=== PATIENT | female | born 1980 | race Caucasian/White ===

== ENCOUNTER 2022-01-22 11:18 | Outpatient (CLI) | payer OTHER, SELFPAY ==
--- NOTE | ~2022-01-22 | XR_ITS ---
EXAMINATION: XR abdomen/kub 1V INDICATION: Bilateral kidney stones TECHNIQUE: Supine views of the abdomen were obtained on 2 radiographs. COMPARISON: None FINDINGS: Stones measuring 3 mm and 2 mm are present in the lower pole of the right kidney. There is a 4 mm stone in the upper pole of the left kidney. No stones are identified along the expected course s of the ureters or in the urinary bladder. The bowel gas pattern is normal. The visualized lung base s are clear. Surgical clips in the right upper quadrant are likely from prior cholecystectomy. IMPRESSION: 1. Bilateral nephrolithiasis. Reviewed, dictated and finalized at location F.
== END 2022-01-22 11:19 | disposition home or self-care (01) ==
PROVIDERS: PCP Family Medicine; Visit Provider Nurse Practitioner Family
DX: N20.0 Calculus of kidney (principal)
CPT/HCPCS: 74018